=== PATIENT | female | born 1950 | race Caucasian/White ===

== ENCOUNTER 2023-09-12 07:04 | Day surgery (SDC) | payer OTHER ==
[~2023-09-12] VITALS: Ht 154.9 cm; Wt 68.0 kg
[~2023-09-12 07:04] MED LIST: SODIUM CHLORIDE 0.9% 1,000 ML IV ONE
[2023-09-12] MEDS ORDERED: ALBUTEROL SULFATE 2.5 MG/0.5 ML NEB SOLUTION NEB ONE (07:05)
[2023-09-12] MEDS ORDERED: BENZOCAINE 20% 50 MCG/SPRAY 57 GM TP ONE (07:05)
[2023-09-12] MEDS ORDERED: LIDOCAINE 4% 50 ML SOLUTION TP ONE (07:05)
[2023-09-12] MEDS ORDERED: LIDOCAINE 2% 11 ML JELLY TP ONE (07:05)
[2023-09-12] MEDS ORDERED: SODIUM CHLORIDE 0.9% 1,000 ML ONE (07:34)
[2023-09-12] MEDS ORDERED: MIDAZOLAM HCL 2 MG/2 ML VIAL ONE (07:52)
[2023-09-12] MEDS ORDERED: FentaNYL CITRATE PF 100 MCG/2 ML VIAL ONE (07:52)
[2023-09-12] MEDS ORDERED: FLUMAZENIL 0.1 MG/ML 5 ML VIAL IVP ONE (07:53)
[2023-09-12] MEDS ORDERED: DiphenhydrAMINE HCL 50 MG/ML VIAL ONE (07:53)
[2023-09-12] MEDS ORDERED: NALOXONE HCL 0.4 MG/ML VIAL ONE (07:53)
[2023-09-12] MEDS ORDERED: EPINEPHrine 1:10,000 [1 MG/10 ML] SYRINGE ONE (07:53)
[2023-09-12] MEDS ORDERED: ATROPINE SULFATE 0.1 MG/ML 10 ML SYRINGE IVP ONE (07:53)
[2023-09-12] MEDS ORDERED: SODIUM TETRADECYL SULFATE 3% 60 MG/2 ML VIAL IVP ONE (07:53)
[2023-09-12] MEDS ORDERED: ATOR20TA PO (08:28)
[2023-09-12] MEDS ORDERED: MethylPREDNISolone SOD SUCC 125 MG/2 ML VIAL IVP ONE (09:15)
[2023-09-12 09:30] VITALS: PULSE 66; RESP 20; O2SAT 99
[2023-09-12] MEDS ORDERED: MethylPREDNISolone SOD SUCC 125 MG/2 ML VIAL ONE (09:33)
== END 2023-09-12 11:30 | disposition home or self-care (01) ==
LOC: SURGERY 07:04
PROVIDERS: ATTEND Internal Medicine Critical Care Medicine
DX: R05.3 Chronic cough (principal); R91.1 Solitary pulmonary nodule
CPT/HCPCS: 87206; 87101; 87220; 87070; 31623; 31624; 71045; 87015; J3010; J2250; J2930; Q9967; J7030; 88112; J0171; J0461; J1200; J2310; J3490; J7613; Z7610